=== PATIENT | female | born 1995 | race Two or more races ===

== ENCOUNTER 2022-07-04 06:52 | Emergency (ER) | payer OTHER ==
[2022-07-04 08:31] LABS: CORONAVIRUS COVID-19 NAA NEGATIVE (NEGATIVE); INFLUENZA A NAA NEGATIVE (NEGATIVE); INFLUENZA B NAA NEGATIVE (NEGATIVE)
== END 2022-07-04 09:40 | disposition home or self-care (01) ==
LOC: MERGE 06:52 → MW.ED 06:52
DX: B34.9 Viral infection, unspecified (principal); N30.01 Acute cystitis with hematuria; Z88.8 Allergy status to other drugs, medicaments and biological substances; Z20.822 Contact with and (suspected) exposure to COVID-19
CPT/HCPCS: 0240U; 71046; 81001; 87086; 87651; 99283